=== PATIENT | male | born 1935 | race Caucasian/White ===

== ENCOUNTER 2024-01-29 10:08 | Outpatient (CLI) | payer OTHER, SELFPAY | END 2024-01-29 10:09 | disposition home or self-care (01) | LOC: AMB 02-02 00:57 | PROVIDERS: PCP Nurse Practitioner Family; Visit Provider Internal Medicine | DX: R33.9 Retention of urine, unspecified (principal); T83.9XXA Unspecified complication of genitourinary prosthetic device, implant and graft, initial encounter | CPT/HCPCS: A0425; A0427 ==